=== PATIENT | female | born 1985 | race Caucasian/White ===

== ENCOUNTER 2017-02-04 20:04 | Outpatient (CLI) | payer OTHER ==
--- NOTE | 2017-02-05 11:38 | US ---
EXAM DATE: 02/04/17 PATIENT'S AGE: 31 Patient: GERARD RAIN Facility: [place], [place] Site . Site : 1985 Study: US Abdomen RENAL [id number] 9:59:32 PM Ordering Physician: Live Ham Final Report: INDICATION: Back pain. 28 weeks . TECHNIQUE: Ultrasound renal bilateral. Bassett-scale and color Doppler sonographic images were acquired of the kidneys and urinary bladder. COMPARISON: None available FINDINGS: Right kidney: 11.8 x 6.2 x 6.9 cm. Normal echotexture and cortex. Mild right hydronephrosis. No discrete mass or stone seen. Left kidney: 12.4 x 6.1 x 6.7 cm. Normal echotexture and cortex. Mild left hydronephrosis. No discrete mass or stone seen. Bladder: No discrete lesion seen. Few apparent small echogenic foci within the bladder lumen. Ureteral jets are documented. Other: A gravid uterus is partially imaged, not evaluated on this examination. IMPRESSION: Mild bilateral hydronephrosis could be related to a gravid uterus, which is not well evaluated on this examination. A few apparent small luminal echogenicities seen within the bladder. Correlate with urinalysis to exclude a UTI. Dictated by Jayant Scott MD @ 02/04/2017 10:29:25 PM Dictated by: Jayant Scott MD @ 02/04/2017 22:29:33 (Electronic Signature) Report Signed by Proxy and Original Signed Document filed in the Medical Record. RODRIGUEZ
== END 2017-02-04 23:41 | disposition home or self-care (01) ==
LOC: MW.OBCHECK 20:04 → MW.OB 20:27 → MW.OBCHECK 23:41
PROVIDERS: ATTEND Obstetrics & Gynecology
DX: O26.893 Other specified pregnancy related conditions, third trimester (principal); Z3A.28 28 weeks gestation of pregnancy; N13.30 Unspecified hydronephrosis
CPT/HCPCS: 59025; 76775; 76775-26; 81001

== ENCOUNTER 2017-02-21 17:03 | Outpatient (CLI) | payer OTHER ==
[2017-02-21] MEDS ORDERED: Acetaminophen/Butalbital/Caffeine 325-50-40 MG Tab PO ONE (17:57)
[2017-02-21 18:03] LABS: CHLORIDE,CL 109 mmol/L (98-110); SODIUM,NA 138 mmol/L (136-146)
== END 2017-02-21 19:40 | disposition home or self-care (01) ==
LOC: MW.OBCHECK 17:03 → MW.OB 17:06 → MW.OBCHECK 19:40
PROVIDERS: ATTEND Obstetrics & Gynecology
DX: O26.899 Other specified pregnancy related conditions, unspecified trimester (principal); R51 Headache
CPT/HCPCS: 36415; 59025; 80053; 81003; 84550; 85025; A9270

== ENCOUNTER 2017-04-23 03:27 | Inpatient (IN) | payer OTHER ==
[2017-04-23] MEDS ORDERED: Sodium Chloride 0.9% 10 ML Syringe FLUSH PRN (04:07)
[2017-04-23] MEDS ORDERED: Water For Irrigation,Sterile 1,000 ML Container IRR PRN (04:07)
[2017-04-23] MEDS ORDERED: Nalbuphine 10 MG/1 ML Vial IVPUSH PRN (04:07)
[2017-04-23] MEDS ORDERED: Sodium Chloride 0.9% 2.5 ML Syringe FLUSH PRN (04:07)
[2017-04-23] MEDS ORDERED: Lidocaine 1% 50 ML MDV INJECT PRN (04:07)
[2017-04-23] MEDS ORDERED: Methylergonovine 0.2 MG/1 ML Amp IM PRN (04:07)
[2017-04-23] MEDS ORDERED: Carboprost Tromethamine 250 MCG/1 ML Amp IM PRN (04:07)
[2017-04-23] MEDS ORDERED: Butorphanol 1 MG/ML SDV IVPUSH PRN (04:07)
[2017-04-23] MEDS ORDERED: Misoprostol 200 MCG Tab PO PRN (04:07)
[2017-04-23] MEDS ORDERED: Oxytocin/Lactated Ringers 30 UNIT/500 ML BAG IV SCH (04:15)
[2017-04-23] MEDS ORDERED: Lactated Ringers 1,000 ML IV SCH (04:15)
[2017-04-23] MEDS ORDERED: Acetaminophen 500 MG Tab PO PRN (05:48)
[2017-04-23] MEDS ORDERED: Benzocaine/Menthol 20%-0.5% Spray 78 GM Cannister TOP PRN (05:48)
[2017-04-23] MEDS ORDERED: Witch Hazel Medicated Pads 40/Jar TOP PRN (05:48)
[2017-04-23] MEDS ORDERED: oxyCODONE 5 MG Tab PO PRN (05:48)
[2017-04-23] MEDS ORDERED: Docusate Sodium 100 MG Cap PO PRN (05:48)
[2017-04-23] MEDS ORDERED: Bisacodyl 10 MG Supp RECTAL PRN (05:48)
[2017-04-23] MEDS ORDERED: Lanolin 100% Cream 7 GM Tube TOP PRN (05:48)
[2017-04-23] MEDS: Ibuprofen 800 MG Tab PO PRN ×3 (06:05→20:59)
--- NOTE | 2017-04-23 09:27 | OR ---
SURGEON: Rosmery Rodrigues DATE OF PROCEDURE: 04/23/2004 Delivery Summary. PREDELIVERY HISTORY: This is a 32-year-old G2, P1, who presented to Labor and Delivery at 39 weeks and 5 days with complaints of intrauterine contractions. The patient was examined and found to be 5 cm dilated. heart tracing was noted to be category 1 status and the patient was shona every 1-2 minutes. Shortly 20 minutes thereafter, the patient wanted to be examined again and was found to be 7 cm dilated, and the patient quickly progressed to complete dilation. The patient underwent amniotomy and started maternal expulsive efforts, with being complete. Of note, the patient's labor total length was less than 3 hours, making this precipitous labor. Of note, at the time of amniotomy, there was noted thick meconium. PREOPERATIVE DIAGNOSES: 1. Intrauterine at 39 weeks and 5 days. 2. GBS negative. 3. Active labor. POSTOPERATIVE DIAGNOSES: 1. Intrauterine at 39 weeks and 5 days. 2. Delivered. 3. Second-degree perineal laceration. 4. Separation of right labia majora. PROCEDURE PERFORMED: 1. Spontaneous-assisted vaginal delivery. 2. Repair of midline second-degree perineal laceration. 3. Reapproximation of right labia minora. ANESTHESIA: Local. ESTIMATED BLOOD LOSS: 125 mL. FINDINGS: Viable female in vertex presentation with score of 8 and 8 at 1 and 5 minutes respectively. Weight of 3420 g. Normal intact placenta with 3-vessel cord. Midline second-degree perineal laceration. Right labia minora reapproximation. COMPLICATIONS: None known. DISPOSITION: Was the patient tolerated the procedure well. DESCRIPTION OF PROCEDURE: This female under no anesthesia, delivered a viable female infant, with score of 8 and 8 at 1 and 5 minutes respectively and weight of 3220 g. Delivery was via spontaneous assisted vaginal delivery with vertex presentation. Upon delivery of infant vertex, neck was checked. There was no nuchal cord. With gentle downward traction, the anterior shoulder was delivered followed by the body. After delivery, the was vigorous at delivery and was bulb suctioned. The cord was doubly clamped and cut. The infant was taken over to baby warmer for deep suctioning by the nursing staff. Cord blood was collected and sent for analysis. After delivery of the infant, IV Pitocin was given as uterotonic to manage the third stage of labor and to prevent excessive maternal blood loss. With signs of placental separation, there was fundal massage completed along with traction on the umbilical cord and a normal intact placenta with 3-vessel cord was delivered. After delivery of infant and placenta, the vagina, perineum, and rectum were explored and the patient had a midline second-degree perineal laceration that was almost occult in appearance as the actual perineum was intact but more so in the vagina a second-degree laceration. The patient also had a separation of the right labia minora. After receiving local, 1% lidocaine plain was used to infiltrate the perineal tissues. The second-degree laceration was repaired in the usual 3-layer fashion with a 3- 0 Vicryl suture. Attention then was turned to the patient's right labia minora and the tissues in the right labia minora that were involved or infiltrated with 1% lidocaine plain, no epi. A 4-0 Vicryl suture was used to reapproximate the labia minora. Afterwards, hemostasis noted be excellent. All clots and debris were removed from the lower uterine segment and vagina. The patient was cleansed. Pads were changed. The bed was returned to functioning status. The patient and tolerated the procedure well. Sponge, lap, needle, and instrument counts were correct. LAURY / HINA /[id number] RODRIGUEZ
--- NOTE | 2017-04-24 06:37 | PCM.PNPP ---
- General Info Date of Service: 04/24/17 Functional Status: Reports: pain controlled, tolerating diet, ambulating, urinating - Review of Systems General: Reports: No Symptoms HEENT: Reports: no symptoms Pulmonary: Reports: no symptoms Cardiovascular: Reports: No Symptoms Gastrointestinal: Reports: No symptoms Genitourinary: Reports: no symptoms Musculoskeletal: Reports: no symptoms Skin: Reports: no symptoms Neurological: Reports: No Symptoms Psychiatric: Reports: no symptoms - Patient Data Vital Signs - most recent: Last Vital Signs Temp 36.9 C 04/23/17 19:51 Pulse 66 04/23/17 19:51 Resp 17 04/23/17 19:51 BP 113/61 04/23/17 19:51 Pulse Ox 99 04/23/17 19:51 Weight - most recent: 92.079 kg Lab Results - last 24 hrs: Laboratory Results - last 24 hr 04/24/17 Range/Units 04:30 Hgb 9.7 L (12.0-16.0) g/dL Hct 29.1 L (36.0-46.0) % Med Orders - Current: Current Medications Acetaminophen (Tylenol Extra Strength) 500 mg PO Q4H PRN PRN Reason: Pain Last Admin: 04/23/17 10:17 Dose: 500 mg Benzocaine/Menthol (Dermoplast Pain Relief 20%-0.5% [place]) 78 gm TOP ASDIRECTED PRN PRN Reason: Perineal Comfort Measure Last Admin: 04/23/17 06:04 Dose: 1 canister Bisacodyl (Dulcolax) 10 mg RECTAL .ONCE PRN PRN Reason: Constipation Butorphanol Tartrate (Stadol) 1 mg IVPUSH Q1H PRN PRN Reason: Pain Carboprost Tromethamine (Hemabate Ds) 250 mcg IM ASDIRECTED PRN PRN Reason: Post Hemorrhage Docusate Sodium (Colace) 100 mg PO BID PRN PRN Reason: Constipation Last Admin: 04/23/17 06:05 Dose: 100 mg Emollient Ointment (Lansinoh Hpa) 0 gm TOP ASDIRECTED PRN PRN Reason: Sore Nipples Lactated Ringer's (Ringers, Lactated) 1,000 mls @ 150 mls/hr IV ASDIRECTED [place] Last Admin: 04/23/17 04:02 Dose: 999 mls/hr Ibuprofen (Motrin) 800 mg PO Q6H PRN PRN Reason: Pain Last Admin: 04/23/17 20:59 Dose: 800 mg Lidocaine HCl (Xylocaine 1%) 50 ml INJECT .ONCE PRN PRN Reason: Laceration repair Last Admin: 04/23/17 04:32 Dose: 50 ml Methylergonovine Maleate (Methergine) 0.2 mg IM ASDIRECTED PRN PRN Reason: Post Hemorrhage Misoprostol (Cytotec) 200 mcg PO .ONCE PRN PRN Reason: Post Hemorrhage Oxycodone HCl (Oxycodone) 5 mg PO Q2H PRN PRN Reason: Pain Sodium Chloride (Saline Flush) 10 ml FLUSH ASDIRECTED PRN PRN Reason: Keep Vein Open Sodium Chloride (Saline Flush) 2.5 ml FLUSH ASDIRECTED PRN PRN Reason: Keep Vein Open Sterile Water (Sterile Water For Irrigation) 1,000 ml IRR ASDIRECTED PRN PRN Reason: delivery Last Admin: 04/23/17 04:15 Dose: 1,000 ml Witch Mony (Tucks) 1 pad TOP ASDIRECTED PRN PRN Reason: comfort care Last Admin: 04/23/17 06:05 Dose: 1 tub Discontinued Medications Oxytocin/Lactated Ringer's (Pitocin In Lr 30 Units/500 Ml) 30 unit in 500 mls @ 999 mls/hr IV ASDIRECTED [place] PRN Reason: 999 MUNITS/MIN Stop: 04/23/17 04:46 Last Admin: 04/23/17 04:21 Dose: 999 munits/min, 999 mls/hr Nalbuphine HCl (Nubain) 10 mg IVPUSH Q1H PRN PRN Reason: Pain (severe 7-10) Stop: 04/23/17 06:08 - Infant Interaction Disposition, : in Room with Family Interaction: Holding Feeding: Breastfed ; Nursed Well Support Person: - Recovery Exam Fundal Tone: Firm Fundal Level: At Umbilicus Fundal Placement: Midline Lochia Amount: Small Lochia Color: Rubra/Red Perineum Description: Other (see below) Other Perinuem Description: 2nd degree laceration with repair Episiotomy/Laceration: Approximated Bladder Status: Voiding - Exam General: alert, oriented HEENT: Pupils equal Lungs: Normal respiratory effort Abdomen: soft, no tenderness, no distension Extremities: no edema Skin: warm, dry, intact Wound/Incisions: healing well Neurological: no new focal deficit Psy/Mental Status: alert, normal affect, normal mood - Problem List & Annotations (1) Vaginal delivery SNOMED Code(s): 356008450 Code(s): O80 - ENCOUNTER FOR FULL-TERM UNCOMPLICATED DELIVERY Status: Acute Current Visit: Yes - Problem List Review Problem List Initiated/Reviewed/Updated: Yes - Assessment Assessment:: PPD#1 after , stable, would like to go home. Minimal lochia, well, minimal pain. She would like to start on antidepressant as she states she had untreated depression last and all of her sister have had depression. - Plan Plan:: Dismiss to home. Discharge instructions reviewed. Discussed risks and benefits of antidepressant while . Explained that the baby does have some exposure, primary symptom would be drowsiness or lethargy, if noted she should stop antidepressant until baby is evaluated. Discussed that it will take 2 weeks for antidepressant to be effective.
[2017-04-24] MEDS: Ibuprofen 800 MG Tab PO PRN (08:07)
[2017-04-24 15:18] VITALS: BP 118/65
== END 2017-04-24 14:30 | disposition home or self-care (01) | DRG 775 ==
LOC: MW.OB 03:27 → MW.OBCHECK 03:27 → MW.OB 04:07 → MW.OBCHECK 04:07 → OBSVTOIN 04:20 → MW.OB 13:50
PROVIDERS: ADMIT Obstetrics & Gynecology; ATTEND Obstetrics & Gynecology
PROC: 10E0XZZ Delivery of Products of Conception, External Approach (ICD-10-PCS; principal; 2017-04-23)
PROC: 0KQM0ZZ Repair Perineum Muscle, Open Approach (ICD-10-PCS; 2017-04-23)
DX: O70.1 Second degree perineal laceration during delivery (principal); Z37.0 Single live birth; O99.345 Other mental disorders complicating the puerperium; F32.9 Major depressive disorder, single episode, unspecified; Z3A.39 39 weeks gestation of pregnancy
CPT/HCPCS: 36415; 59025; 85014; 85018; 85027; 86850; 86900; 86901; A9270-GY; J7120

== ENCOUNTER 2018-06-24 05:15 | Inpatient (IN) | payer OTHER ==
[2018-06-24] MEDS ORDERED: Nalbuphine 10 MG/1 ML Vial IVPUSH PRN (05:40)
[2018-06-24] MEDS ORDERED: Terbutaline 1 MG/ML SDV SUBCUT PRN (05:40)
[2018-06-24] MEDS ORDERED: Butorphanol 1 MG/ML SDV IVPUSH PRN (05:40)
[2018-06-24] MEDS ORDERED: Methylergonovine 0.2 MG/1 ML Amp IM PRN ×2 (05:40→12:44)
[2018-06-24] MEDS ORDERED: Carboprost Tromethamine 250 MCG/1 ML Amp IM PRN (05:40)
[2018-06-24] MEDS ORDERED: Lidocaine 1% 50 ML MDV INJECT PRN (05:40)
[2018-06-24] MEDS ORDERED: Sodium Chloride 0.9% 10 ML Syringe FLUSH PRN (05:40)
[2018-06-24] MEDS ORDERED: Misoprostol 200 MCG Tab PO PRN (05:40)
[2018-06-24] MEDS ORDERED: Sodium Chloride 0.9% 2.5 ML Syringe FLUSH PRN (05:40)
[2018-06-24] MEDS ORDERED: Tranexamic Acid 1,000 MG in Sodium Chloride 0.9% 100 ML IV PRN (05:40)
[2018-06-24] MEDS ORDERED: Water For Irrigation,Sterile 1,000 ML Container IRR PRN (05:40)
[2018-06-24] MEDS ORDERED: Oxytocin/0.9 % Sodium Chloride 30 UNIT/500 ML BAG IV SCH ×2 (05:45)
[2018-06-24] MEDS: Lactated Ringers 1,000 ML IV SCH ×2 (06:27→07:42)
[2018-06-24] MEDS ORDERED: Ibuprofen 400 MG Tab PO PRN ×2 (12:39→12:44)
[2018-06-24] MEDS ORDERED: Ibuprofen 800 MG Tab PO PRN ×2 (12:39→12:48)
[2018-06-24] MEDS ORDERED: oxyCODONE 5 MG Tab PO PRN ×2 (12:39→12:44)
[2018-06-24] MEDS ORDERED: Benzocaine/Menthol 20%-0.5% Spray 78 GM Cannister TOP PRN ×2 (12:39→12:44)
[2018-06-24] MEDS ORDERED: Bisacodyl 10 MG Supp RECTAL PRN ×2 (12:39→12:44)
[2018-06-24] MEDS ORDERED: Lanolin 100% Cream 7 GM Tube TOP PRN ×2 (12:39→12:44)
[2018-06-24] MEDS ORDERED: Acetaminophen 500 MG Tab PO PRN ×3 (12:39→12:44)
[2018-06-24] MEDS ORDERED: Witch Hazel Medicated Pads 40/Jar TOP PRN ×2 (12:39→12:44)
[2018-06-24] MEDS ORDERED: Docusate Sodium 100 MG Cap PO PRN ×2 (12:39→12:44)
--- NOTE | 2018-06-24 12:41 | PCM.DEL ---
L & D Note - General Info Date of Service: 06/24/18 Mother's Due Date: 07/01/18 - Delivery Note Labor: Augmented by ARM, Induced by Oxytocin Delivery Outcome: Livebirth Delivery Method: Spontaneous Vaginal Delivery-Single Presentation: Left Occiput Anterior (STEPHANY) Nuchal Cord: Present Prep: Other Anesthesia Type: Local Anesthetic: Lidocaine (Xylocaine) 1% Plain Local Anesthetic Volume: Other (10 ml) Episiotomy Type: None Laceration: Vaginal, Other (periclitoral) Suture type: Vicryl Suture size: 3-0 Placenta: Intact, Spontaneous Cord: 3 Vessels Estimated Blood Loss: 300 Resuscitation Needed: No Score 1 min: 9 Score 5 min: 9 Second Stage Interventions: Reports: Encouragement Given, Pushing, Feet in Foot Rests (3860 grams, liveborn male.) - General Info Date of Service: 06/24/18 - Patient Data Weight - Most Recent: 98.43 kg Lab Results Last 24 Hours: Laboratory Results - last 24 hr 06/24/18 06/24/18 Range/Units 06:10 06:10 WBC 8.85 (4.0-11.0) K/uL RBC 4.20 L (4.30-5.90) M/uL Hgb 9.8 L (12.0-16.0) g/dL Hct 31.8 L (36.0-46.0) % MCV 75.7 L (80.0-98.0) fL MCH 23.3 L (27.0-32.0) pg MCHC 30.8 L (31.0-37.0) g/dL RDW Std Deviation 43.0 (28.0-62.0) fl RDW Coeff of Rosalva 16 H (11.0-15.0) % Plt Count 196 (150-400) K/uL MPV 10.00 (7.40-12.00) fL Nucleated RBC % 0.0 /100WBC Nucleated RBCs # 0 K/uL Blood Type A POSITIVE Antibody Screen NEGATIVE Med Orders - Current: Current Medications Butorphanol Tartrate (Stadol) 1 mg IVPUSH ASDIRECTED PRN PRN Reason: Pain Carboprost Tromethamine (Hemabate Ds) 250 mcg IM ASDIRECTED PRN PRN Reason: Post Hemorrhage Lactated Ringer's (Ringers, Lactated) 1,000 mls @ 150 mls/hr IV ASDIRECTED [place] Last Admin: 06/24/18 07:42 Dose: 150 mls/hr Oxytocin/Sodium Chloride (Oxytocin 30 Unit/500 Ml-Ns) 30 unit in 500 mls @ 2 mls/hr IV TITRATE [place]; Protocol Last Admin: 06/24/18 07:59 Dose: 2 munits/min, 2 mls/hr Oxytocin/Sodium Chloride (Oxytocin 30 Unit/500 Ml-Ns) 30 unit in 500 mls @ 999 mls/hr IV TITRATE [place] Tranexamic Acid 1,000 mg/ (Sodium Chloride) 110 mls @ 660 mls/hr IV ONETIME PRN PRN Reason: Bleeding Lidocaine HCl (Xylocaine 1%) 50 ml INJECT ONETIME PRN PRN Reason: Laceration repair Methylergonovine Maleate (Methergine) 0.2 mg IM ASDIRECTED PRN PRN Reason: Post Hemorrhage Misoprostol (Cytotec) 200 mcg PO ONETIME PRN PRN Reason: Post Hemorrhage Nalbuphine HCl (Nubain) 10 mg IVPUSH ASDIRECTED PRN PRN Reason: Pain (severe 7-10) Last Admin: 06/24/18 11:02 Dose: 10 mg Sodium Chloride (Saline Flush) 10 ml FLUSH ASDIRECTED PRN PRN Reason: Keep Vein Open Sodium Chloride (Saline Flush) 2.5 ml FLUSH ASDIRECTED PRN PRN Reason: Keep Vein Open Sterile Water (Sterile Water For Irrigation) 1,000 ml IRR ASDIRECTED PRN PRN Reason: delivery Terbutaline Sulfate (Brethine) 0.25 mg SUBCUT ASDIRECTED PRN PRN Reason: Tacysystole - Problem List & Annotations (1) Vaginal delivery SNOMED Code(s): 182105048 Code(s): O80 - ENCOUNTER FOR FULL-TERM UNCOMPLICATED DELIVERY Status: Acute Current Visit: No - Problem List Review Problem List Initiated/Reviewed/Updated: Yes - My Orders Last 24 Hours: My Active Orders 06/24/18 05:40 Patient Status [ADT] Routine Bedrest Bathroom Privileges [RC] ASDIRECTED Communication Order [RC] ASDIRECTED Communication Order [RC] ASDIRECTED Heart Tones [RC] CONTINUOUS Non Stress Test [RC] PER UNIT ROUTINE May Shower [RC] ASDIRECTED Notify Provider [RC] PRN Notify Provider [RC] PRN Oxygen Therapy [RC] ASDIRECTED Up ad Belle [RC] ASDIRECTED Vaginal Exam [RC] PRN Vaginal Exam [RC] PRN Vital Signs [RC] PER UNIT ROUTINE Vital Signs [RC] PER UNIT ROUTINE Butorphanol [Stadol] 1 mg IVPUSH ASDIRECTED PRN Carboprost Tromethamine [Hemabate DS] 250 mcg IM ASDIRECTED PRN Lidocaine 1% [Xylocaine 1%] 50 ml INJECT ONETIME PRN Methylergonovine [Methergine] 0.2 mg IM ASDIRECTED PRN Nalbuphine [Nubain] 10 mg IVPUSH ASDIRECTED PRN Sodium Chloride 0.9% [Saline Flush] 10 ml FLUSH ASDIRECTED PRN Sodium Chloride 0.9% [Saline Flush] 2.5 ml FLUSH ASDIRECTED PRN Terbutaline [Brethine] 0.25 mg SUBCUT ASDIRECTED PRN Tranexamic Acid [Cyklokapron] 1,000 mg Sodium Chloride 0.9% [Normal Saline] 100 ml IV ONETIME Water For Irrigation,Sterile [Sterile Water for Irrigation] 1,000 ml IRR ASDIRECTED PRN miSOPROStol [Cytotec] 200 mcg PO ONETIME PRN Scalp Electrode [WOMSER] Per Unit Routine Peripheral IV Insertion Adult [OM.PC] Routine Resuscitation Status Routine 06/24/18 05:45 Lactated Ringers [Ringers, Lactated] 1,000 ml IV ASDIRECTED Oxytocin/0.9 % Sodium Chloride [Oxytocin 30 Unit/500 ML-NS] 30 unit in 500 ml IV TITRATE Oxytocin/0.9 % Sodium Chloride [Oxytocin 30 Unit/500 ML-NS] 30 unit in 500 ml IV TITRATE Medication Administration Instruction [OM.PC] Q3H 06/24/18 Breakfast Clear Liquid Diet [DIET]
[2018-06-24] MEDS ORDERED: Acetaminophen 325 MG Tab PO PRN (12:48)
[2018-06-24] MEDS: Ibuprofen 800 MG Tab PO PRN ×2 (13:16→22:24)
[2018-06-24] MEDS: Acetaminophen 500 MG Tab PO PRN ×2 (13:17→19:40)
--- NOTE | 2018-06-25 08:01 | PCM.PNPP ---
- General Info Date of Service: 06/25/18 Admission Dx/Problem (Free Text): vaginal delivery Functional Status: Reports: Pain Controlled, Tolerating Diet, Ambulating, Urinating - Review of Systems General: Reports: No Symptoms HEENT: Reports: No Symptoms Pulmonary: Reports: No Symptoms Cardiovascular: Reports: No Symptoms Gastrointestinal: Reports: No Symptoms Genitourinary: Reports: No Symptoms Musculoskeletal: Reports: No Symptoms Skin: Reports: No Symptoms Neurological: Reports: No Symptoms Psychiatric: Reports: No Symptoms - General Info Date of Service: 06/25/18 - Patient Data Vital Signs - Most Recent: Last Vital Signs Temp 36.4 C 06/25/18 03:00 Pulse 76 06/25/18 03:00 Resp 18 06/25/18 03:00 BP 111/68 06/25/18 03:00 Pulse Ox 98 06/25/18 03:00 Weight - Most Recent: 98.43 kg Lab Results - Last 24 Hours: Laboratory Results - last 24 hr 06/24/18 06/25/18 Range/Units 12:10 04:50 Hgb 8.2 L (12.0-16.0) g/dL Hct 26.8 L (36.0-46.0) % Cord ABG pH 7.330 (7.18-7.38) Cord ABG Base Excess -4 (-10--2) Cord VBG pH 7.407 (7.25-7.45) Cord VBG Base Excess -3 (-10--2) Med Orders - Current: Current Medications Acetaminophen (Tylenol Extra Strength) 500 mg PO Q4H PRN PRN Reason: Pain Last Admin: 06/25/18 04:10 Dose: 500 mg Acetaminophen (Tylenol Extra Strength) 1,000 mg PO Q4H PRN PRN Reason: Pain Last Admin: 06/24/18 19:40 Dose: 1,000 mg Acetaminophen (Tylenol) 650 mg PO Q6H PRN PRN Reason: Headache Benzocaine/Menthol (Dermoplast Pain Relief 20%-0.5% [place]) 78 gm TOP ASDIRECTED PRN PRN Reason: Perineal Comfort Measure Bisacodyl (Dulcolax) 10 mg RECTAL ONETIME PRN PRN Reason: Constipation Docusate Sodium (Colace) 100 mg PO BID PRN PRN Reason: Constipation Last Admin: 06/24/18 19:41 Dose: 100 mg Emollient Ointment (Lansinoh Hpa) 0 gm TOP ASDIRECTED PRN PRN Reason: Sore Nipples Last Admin: 06/24/18 19:41 Dose: 7 gm Escitalopram Oxalate (Lexapro) 10 mg PO DAILY [facility] Ibuprofen (Motrin) 400 mg PO Q4H PRN PRN Reason: Pain Ibuprofen (Motrin) 800 mg PO Q6H PRN PRN Reason: Pain Last Admin: 06/24/18 22:24 Dose: 800 mg Ibuprofen (Motrin) 800 mg PO Q6H PRN PRN Reason: Pain Methylergonovine Maleate (Methergine) 0.2 mg IM ONETIME PRN PRN Reason: Excessive Vaginal Bleeding Oxycodone HCl (Oxycodone) 5 mg PO Q2H PRN PRN Reason: Pain Propranolol HCl (Inderal La) 60 mg PO DAILY [facility] Witch Mony (Tucks) 1 pad TOP ASDIRECTED PRN PRN Reason: comfort care Last Admin: 06/24/18 13:15 Dose: 1 applic Discontinued Medications Acetaminophen (Tylenol Extra Strength) 500 mg PO Q4H PRN PRN Reason: Pain Acetaminophen (Tylenol Extra Strength) 1,000 mg PO Q4H PRN PRN Reason: Pain Benzocaine/Menthol (Dermoplast Pain Relief 20%-0.5% [place]) 78 gm TOP ASDIRECTED PRN PRN Reason: Perineal Comfort Measure Bisacodyl (Dulcolax) 10 mg RECTAL ONETIME PRN PRN Reason: Constipation Butorphanol Tartrate (Stadol) 1 mg IVPUSH ASDIRECTED PRN PRN Reason: Pain Carboprost Tromethamine (Hemabate Ds) 250 mcg IM ASDIRECTED PRN PRN Reason: Post Hemorrhage Docusate Sodium (Colace) 100 mg PO BID PRN PRN Reason: Constipation Emollient Ointment (Lansinoh Hpa) 0 gm TOP ASDIRECTED PRN PRN Reason: Sore Nipples Lactated Ringer's (Ringers, Lactated) 1,000 mls @ 150 mls/hr IV ASDIRECTED [facility] Last Admin: 06/24/18 07:42 Dose: 150 mls/hr Oxytocin/Sodium Chloride (Oxytocin 30 Unit/500 Ml-Ns) 30 unit in 500 mls @ 2 mls/hr IV TITRATE [place]; Protocol Last Admin: 06/24/18 07:59 Dose: 2 munits/min, 2 mls/hr Oxytocin/Sodium Chloride (Oxytocin 30 Unit/500 Ml-Ns) 30 unit in 500 mls @ 999 mls/hr IV TITRATE [place] Tranexamic Acid 1,000 mg/ (Sodium Chloride) 110 mls @ 660 mls/hr IV ONETIME PRN PRN Reason: Bleeding Ibuprofen (Motrin) 400 mg PO Q4H PRN PRN Reason: Pain Ibuprofen (Motrin) 800 mg PO Q6H PRN PRN Reason: Pain Lidocaine HCl (Xylocaine 1%) 50 ml INJECT ONETIME PRN PRN Reason: Laceration repair Last Admin: 06/24/18 13:33 Dose: 50 ml Methylergonovine Maleate (Methergine) 0.2 mg IM ASDIRECTED PRN PRN Reason: Post Hemorrhage Misoprostol (Cytotec) 200 mcg PO ONETIME PRN PRN Reason: Post Hemorrhage Nalbuphine HCl (Nubain) 10 mg IVPUSH ASDIRECTED PRN PRN Reason: Pain (severe 7-10) Last Admin: 06/24/18 11:02 Dose: 10 mg Oxycodone HCl (Oxycodone) 5 mg PO Q2H PRN PRN Reason: Pain Sodium Chloride (Saline Flush) 10 ml FLUSH ASDIRECTED PRN PRN Reason: Keep Vein Open Sodium Chloride (Saline Flush) 2.5 ml FLUSH ASDIRECTED PRN PRN Reason: Keep Vein Open Sterile Water (Sterile Water For Irrigation) 1,000 ml IRR ASDIRECTED PRN PRN Reason: delivery Last Admin: 06/24/18 13:34 Dose: 1,000 ml Terbutaline Sulfate (Brethine) 0.25 mg SUBCUT ASDIRECTED PRN PRN Reason: Tacysystole Witch Mony (Tucks) 1 pad TOP ASDIRECTED PRN PRN Reason: comfort care - Interaction Infant Disposition, : in Room with Family Interaction: Holding Infant Feeding: Breastfed Infant; Nursed Well Support Person: - Recovery Exam Fundal Tone: Firm Fundal Level: 1 Fingerbreadths Below Umbilicus Fundal Placement: Midline Lochia Amount: Scant, Small Lochia Color: Rubra/Red Perineum Description: Other (see below) Other Perinuem Description: 2nd degree tear Episiotomy/Laceration: Approximated Bladder Status: Voiding - Exam General: Alert, Oriented HEENT: Pupils Equal Neck: Supple Lungs: Normal Respiratory Effort GI/Abdominal Exam: Soft, Non-Tender, No Distention, No Mass Extremities: Normal Inspection, Non-Tender, No Pedal Edema Skin: Warm, Dry, Intact Neurological: No New Focal Deficit Psy/Mental Status: Alert, Normal Affect, Normal Mood - Problem List & Annotations (1) Vaginal delivery SNOMED Code(s): 326651681 Code(s): O80 - ENCOUNTER FOR FULL-TERM UNCOMPLICATED DELIVERY Status: Acute Current Visit: No - Problem List Review Problem List Initiated/Reviewed/Updated: Yes - My Orders Last 24 Hours: My Active Orders 06/24/18 12:39 May Shower [RC] ASDIRECTED Up ad Belle [RC] ASDIRECTED Vital Signs [RC] PER UNIT ROUTINE 06/24/18 12:44 Acetaminophen [Tylenol Extra Strength] 1,000 mg PO Q4H PRN Acetaminophen [Tylenol Extra Strength] 500 mg PO Q4H PRN Benzocaine/Menthol [Dermoplast Pain Relief 20%-0.5% [place]] 78 gm TOP ASDIRECTED PRN Bisacodyl [Dulcolax] 10 mg RECTAL ONETIME PRN Docusate Sodium [Colace] 100 mg PO BID PRN Ibuprofen [Motrin] 400 mg PO Q4H PRN Ibuprofen [Motrin] 800 mg PO Q6H PRN Lanolin [Lansinoh HPA] See Dose Instructions TOP ASDIRECTED PRN Methylergonovine [Methergine] 0.2 mg IM ONETIME PRN Witch Mony [Tucks] 1 pad TOP ASDIRECTED PRN oxyCODONE 5 mg PO Q2H PRN Resuscitation Status Routine 06/24/18 12:45 Patient Status [ADT] Routine Vital Signs [RC] PER UNIT ROUTINE Assess Lochia [WOMSER] Per Unit Routine Assess Uterine Involution [WOMSER] Per Unit Routine Perineal Care [OM.PC] Per Unit Routine Peripheral IV Discontinue [OM.PC] Routine 06/24/18 12:48 Acetaminophen [Tylenol] 650 mg PO Q6H PRN Ibuprofen [Motrin] 800 mg PO Q6H PRN 06/24/18 Dinner Regular Diet [DIET] 06/25/18 09:00 Escitalopram [Lexapro] 10 mg PO DAILY Propranolol [Inderal LA] 60 mg PO DAILY - Assessment Assessment:: PPD#1 after , stable, chronic anemia, continue iron for 1 month, continue prenatals while . denies dizziness shortness of breath or other symptoms, pain well contolled. - Plan Plan:: Dismiss to home to day, discharge instructions reviewed.
[2018-06-25] MEDS ORDERED: Propranolol 60 MG Cap.ER PO SCH (09:00)
[2018-06-25] MEDS ORDERED: Escitalopram 10 MG Tab PO SCH (09:00)
--- NOTE | 2018-06-25 09:28 | OR ---
SURGEON: Alma Rosa Rodríguez M.D. DATE OF PROCEDURE: 06/24/2018 PREOPERATIVE DIAGNOSES: 1. A 39-week intrauterine . 2. Parvo exposure in . POSTOPERATIVE DIAGNOSES: 1. A 39-week intrauterine . 2. Parvo exposure in . PROCEDURE: 1. Pitocin induction of labor. 2. Term spontaneous vaginal delivery. 3. Repair of periclitoral and vaginal laceration. ANESTHESIA: Local. ESTIMATED BLOOD LOSS: Less than 300 mL. FINDINGS: Liveborn male, scores 9 and 9, 3860 g. COMPLICATION: None known. DISPOSITION: Stable in LDRP. BRIEF HISTORY: This is a 33-year-old female, presents for induction of labor. She has known parvo exposure during . She was followed with serial middle cerebral artery Dopplers, which were normal. She has also been followed with biophysical profiles for polyhydramnios which has subsequently resolved. She presents for induction of labor. Initially, she was 3 cm, 80%, -2 station. Pitocin was initiated. She had category 1 heart tones. Artificial rupture of membranes was performed. She had thick meconium noted. She progressed to complete. She did receive a single dose of Stadol for pain control. DESCRIPTION OF PROCEDURE: With the patient in dorsal lithotomy position, the patient pushed over a 15- minute time period to a 5+ station, at which time the head was delivered spontaneously and atraumatically over the perineum with support. The was deep suctioned on the perineum with subsequent delivery of the 's shoulders and body without any difficulty. There was a nuchal cord that was reduced following the delivery. The infant was handed to the mother in the presence of the nurse attending delivery. The infant is a liveborn male, scores 9 and 9, weight 3860 g. Cord blood was collected for cord ABGs as well as routine cord blood sampling. Pitocin was initiated after delivery of the , whose cord had been doubly clamped and cut after it ceased to pulsate to assist with delivery of the placenta which was delivered spontaneously. Tone intact with 3 vessels. Upon inspection of the pelvis and perineum, there were no periurethral, cervical, perineal or rectal lacerations. There was a small 3 cm vaginal laceration at the 6 o'clock position, it was repaired with a running locked suture of 3-0 Vicryl, after placement of approximately 10 mL of 1% lidocaine and a periclitoral laceration that was repaired, also under lidocaine using 3-0 Vicryl for hemostasis. Final sponge, needle, and instrument count were correct. There were no known complications. is in LDRP and mother are in LDRP in good condition. DEION SANTAMARIA /[id number]
[2018-06-25 12:37] VITALS: BP 132/76
== END 2018-06-25 13:20 | disposition home or self-care (01) | DRG 775 ==
LOC: MW.OBCHECK 05:15 → MW.OB 05:20 → MW.OBCHECK 05:40 → OBSVTOIN 12:08
PROVIDERS: ADMIT Obstetrics & Gynecology; ATTEND Obstetrics & Gynecology
PROC: 3E033VJ Introduction of Other Hormone into Peripheral Vein, Percutaneous Approach (ICD-10-PCS; principal; 2018-06-24)
PROC: 10907ZC Drainage of Amniotic Fluid, Therapeutic from Products of Conception, Via Natural or Artificial Opening (ICD-10-PCS; 2018-06-24)
PROC: 0HQ9XZZ Repair Perineum Skin, External Approach (ICD-10-PCS; 2018-06-24)
DX: O70.0 First degree perineal laceration during delivery (principal); Z37.0 Single live birth; O77.0 Labor and delivery complicated by meconium in amniotic fluid; O69.1XX0 Labor and delivery complicated by cord around neck, with compression, not applicable or unspecified; Z3A.39 39 weeks gestation of pregnancy; Z20.828 Contact with and (suspected) exposure to other viral communicable diseases
CPT/HCPCS: 36415; 59025; 59409; 82803; 85014; 85018; 85027; 86850; 86900; 86901; A9270-GY; J2300; J2590; J7120

== ENCOUNTER 2020-02-27 10:12 | Emergency (ER) | payer OTHER ==
[2020-02-27 10:31] VITALS: BP 111/65; PULSE 98
--- NOTE | 2020-02-27 10:40 | EDM.PDOC ---
ED HPI GENERAL MEDICAL PROBLEM - General Chief Complaint: Respiratory Problem Stated Complaint: POSSIBLE PNEUMONIA Time Seen by Provider: 02/27/20 10:13 Source of Information: Reports: Patient History Limitations: Reports: No Limitations - History of Present Illness INITIAL COMMENTS - FREE TEXT/NARRATIVE: HISTORY AND PHYSICAL: History of present illness: Patient is a 34-year-old female who presents to the emergency room with complaints of fevers, cough, feeling run down and shortness of breath. She reports that her was admitted to our facility approximately a week and a half ago for pneumonia. He was tested for COVID-19, which was negative. Shortly after she started to develop these symptoms. She was seen at [facility] and tested for COVID-19, but has not received these results yet. She has been alternating Tylenol and ibuprofen to control her fevers which have been T-max of 102.4. She also has been using her daughter's inhaler which has seemed to help somewhat. She has felt her fever has been under control over the last 24 hours but still feels like her chest is tight when trying to take in a deep breath. She does have a younger child at home who has also had some respiratory symptoms, mild. Patient denies any headache, change in vision, syncope or near syncope. Denies any chest pain, back pain, abdominal pain, nausea, vomiting, diarrhea, constipation or dysuria. Denies any chance of . Patient has been eating and drinking appropriately. Does not take any hormone replacement therapy, no recent long travels. Review of systems: As per history of present illness and below otherwise all systems reviewed and negative. Past medical history: As per history of present illness and as reviewed below otherwise noncontributory. Surgical history: As per history of present illness and as reviewed below otherwise noncontributory. Social history: See social history for further information Family history: As per history of present illness and as reviewed below otherwise noncontributory. Physical exam: General: Well-developed and well-nourished 34-year-old female. Alert and oriented. Nontoxic-appearing and in no acute distress. HEENT: Atraumatic, normocephalic, pupils equal and reactive bilaterally, negative for conjunctival pallor or scleral icterus, mucous membranes moist, TMs normal bilaterally, throat clear, neck supple, nontender, trachea midline. No drooling or trismus noted. No meningeal signs. No hot potato voice noted. Lungs: Slightly diminished throughout otherwise breath sounds equal bilaterally , chest nontender. No rhonchi or rales. Dry nonproductive cough noted. Heart: S1S2, regular rate and rhythm without overt murmur Abdomen: Soft, nondistended, nontender. Negative for masses or costovertebral tenderness. Skin: Intact, warm, dry. No lesions or rashes noted. Extremities: Atraumatic, moves all extremities per self without difficulty or deficits, negative for cords or calf pain. Neurovascular unremarkable. Neuro: Awake, alert, oriented. Cranial nerves II through XII unremarkable. Cerebellum unremarkable. Motor and sensory unremarkable throughout. Exam nonfocal. Notes: Gathering patient's history and my physical exam, low risk of PE or cardiac involvement. We will do chest x-ray and COVID screening. Equivocal atelectasis within the left retrocardiac region. Due to length of symptoms with treat with abx and medrol. Her Lexapro interacts with Zpak; will use Doxycycline (denies any chance of ). We discussed medication and supportive care measures were reviewed and discussed. Voices understanding and is agreeable to plan of care. Denies any further questions or concerns at this time. Diagnostics: COVID-19, CXR Therapeutics: None Prescription: Zpak, Medrol Dosepak, Pro-Air Impression: Bronchitis Plan: 1. Today's testing and physical exam are within normal limits. We did test you for COVID-19, this was negative. Continue to monitor your symptoms. For further questions related to the COVID-19, the public can call the [facility] hotline at from 7am - 7pm Saturday - Saturday. 2. Good handwashing (at least 20 seconds) and frequently. Contact precautions such as coughing into your elbow, etc... 3. You can alternate Tylenol and ibuprofen as needed for pain and fever management. 3. Please follow-up with your primary care provider as we discussed. Return to the ED as needed and as discussed. Definitive disposition and diagnosis as appropriate pending reevaluation and review of above. Duration: Week(s): Location: Reports: Chest - Related Data Allergies Allergy/AdvReac Type Severity Reaction Status Date / Time No Known Allergies Allergy Verified 02/27/20 10:28 Home Meds: Home Meds Escitalopram [Lexapro] 10 mg PO DAILY #30 tablet 04/24/17 [Rx] Albuterol Sulfate [Proair Hfa] 2 puff IH Q4H PRN #1 hfa.aer.ad 02/27/20 [Rx] Doxycycline [Vibramycin] 100 mg PO BID 5 Days #10 tab 02/27/20 [Rx] methylPREDNISolone [Medrol] 1 dose PO DAILY 6 Days #1 dospk 02/27/20 [Rx] Past Medical History - Past Health History Medical/Surgical History: Denies Medical/Surgical History HEENT History: Reports: Impaired Vision Other HEENT History: contacts 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 ED EXAM, GENERAL - Physical Exam Exam: See Below (See dictation) Course - Vital Signs Last Recorded V/S: Last Vital Signs Temp 97.6 F 02/27/20 10:29 Pulse 98 02/27/20 10:29 Resp 17 02/27/20 10:29 BP 111/65 02/27/20 10:29 Pulse Ox 97 02/27/20 10:29 - Orders/Labs/Meds Labs: Laboratory Tests 02/27/20 Range/Units 11:40 SARS-CoV-2 RNA (RT-PCR) NEGATIVE (NEGATIVE) Departure - Departure Time of Disposition: 12:47 Disposition: Home, Self-Care 01 Clinical Impression: Bronchitis - Discharge Information Prescriptions: Albuterol Sulfate [Proair Hfa] 2 puff IH Q4H PRN #1 hfa.aer.ad PRN Reason: Dyspnea Doxycycline [Vibramycin] 100 mg PO BID 5 Days #10 tab methylPREDNISolone [Medrol] 1 dose PO DAILY 6 Days #1 dospk Instructions: Upper Respiratory Infection, Adult, [id number] Referrals: Khari Blackmon MD [Primary Care Provider] - Forms: ED Department Discharge Additional Instructions: The following information is given to patients seen in the emergency department who are being discharged to home. This information is to outline your options for follow-up care. We provide all patients seen in our emergency department with a follow-up referral. The need for follow-up, as well as the timing and circumstances, are variable depending upon the specifics of your emergency department visit. If you don't have a primary care physician on staff, we will provide you with a referral. We always advise you to contact your personal physician following an emergency department visit to inform them of the circumstance of the visit and for follow-up with them and/or the need for any referrals to a consulting specialist. The emergency department will also refer you to a specialist when appropriate. This referral assures that you have the opportunity for follow-up care with a specialist. All of these measure are taken in an effort to provide you with optimal care, which includes your follow-up. Under all circumstances we always encourage you to contact your private physician who remains a resource for coordinating your care. When calling for follow-up care, please make the office aware that this follow-up is from your recent emergency room visit. If for any reason you are refused follow-up, please contact the [facility] Emergency Department at and asked to speak to the emergency department charge nurse. [facility] [address] [place] [id number] [place] [address] 1. Today's testing and physical exam are within normal limits. We did test you for COVID-19, this was negative. Continue to monitor your symptoms. For further questions related to the COVID-19, the public can call the [facility] hotline at from 7am - 7pm Saturday - Saturday. 2. Good handwashing (at least 20 seconds) and frequently. Contact precautions such as coughing into your elbow, etc... 3. You can alternate Tylenol and ibuprofen as needed for pain and fever management. 3. Please follow-up with your primary care provider as we discussed. Return to the ED as needed and as discussed. Sepsis Event Note - Evaluation Sepsis Screening Result: No Definite Risk - Focused Exam Vital Signs: Vital Signs Temp Pulse Resp BP Pulse Ox 02/27/20 10:29 97.6 F 98 17 111/65 97 Date Exam was Performed: 02/27/20 Time Exam was Performed: 12:47
--- NOTE | 2020-02-27 11:18 | CR ---
Chest: Portable view of the chest was obtained. Comparison: No previous chest x-rays available. Heart size and mediastinum are normal. Questionable minimal density overlying the left side of the heart is seen possibly due to atelectasis. Lungs otherwise are clear. Bony structures appear within normal limits for the patient's age. Impression: 1. Equivocal atelectasis within the left retrocardiac region. 2. Nothing acute is otherwise seen on portable chest x-ray. Note: If patient's symptoms are sufficient for further evaluation, PA and lateral views could be obtained. Diagnostic code #2 This report was dictated in MDT
== END 2020-02-27 12:55 | disposition home or self-care (01) ==
LOC: MW.ED 10:12
DX: J40 Bronchitis, not specified as acute or chronic (principal); F32.9 Major depressive disorder, single episode, unspecified; Z79.899 Other long term (current) drug therapy
CPT/HCPCS: 71045; 71045-26; 99283; 99283-25; U0002

== ENCOUNTER 2020-03-11 11:43 | Emergency (ER) | payer OTHER ==
--- NOTE | 2020-03-11 12:13 | EDM.PDOC ---
ED HPI GENERAL MEDICAL PROBLEM - General Stated Complaint: HEADACHE/FACIAL DROOPING Time Seen by Provider: 03/11/20 11:48 - History of Present Illness INITIAL COMMENTS - FREE TEXT/NARRATIVE: History of present illness: [Patient presents with concerns over migraine headache and some facial droop. 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 No fevers no trauma. Patient states she gets complex migraines and she experiences aura as well as left-sided weakness and decreased sensation over the left side this is her typical migraine. ] Review of systems: As per history of present illness and below otherwise all systems reviewed and negative. Past medical history: As per history of present illness and as reviewed below otherwise noncontributory. Surgical history: As per history of present illness and as reviewed below otherwise noncontributory. Social history: No reported history of drug or alcohol abuse. Family history: As per history of present illness and as reviewed below otherwise noncontributory. Physical exam: HEENT: Atraumatic, normocephalic, pupils reactive, negative for conjunctival pallor or scleral icterus, mucous membranes moist, throat clear, neck supple, nontender, trachea midline. Lungs: Clear to auscultation, breath sounds equal bilaterally, chest nontender. Heart: S1S2, regular, negative for clicks, rubs, or JVD. Abdomen: Soft, nondistended, nontender. Negative for masses or hepatosplenomegaly. Negative for costovertebral tenderness. Pelvis: Stable nontender. Genitourinary: Deferred. Rectal: Deferred. Extremities: Atraumatic, negative for cords or calf pain. Neurovascular unremarkable. Neuro: Awake, alert, oriented. Cranial nerves II through XII unremarkable. Cerebellum unremarkable. Motor and sensory unremarkable throughout. Exam nonfocal. No pronator drift great toe strength equal bilaterally gait is normal she has normal reactive pupils all cranial nerves are intact there is absolutely no facial droop. Diagnostics: [] Therapeutics: [] Impression: Complex migraine [] Plan: I discussed with the patient the completely normal neurological exam. With her history and her description of prior migraine this is a complex migraine she is experiencing. I offered medications for her pain she declined she states that she only came to get a head CT I offered to do a complete CVA work-up although I do not see any signs or symptoms of stroke today in the emergency department she has declined at this time. She is encouraged to follow -up with neurology for her complex migraines referral is given [] Definitive disposition and diagnosis as appropriate pending reevaluation and review of above. 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: Neurological History: Reports: Migraines Psychiatric History: Reports: Depression - Infectious Disease History Infectious Disease History: Reports: Chicken Pox - Past Surgical History HEENT Surgical History: Reports: None Neurological Surgical History: Reports: None Social & Family History - Family History Family Medical History: Noncontributory - Caffeine Use Caffeine Use: Reports: Tea Other Caffeine Use: 2 cups/day ED ROS GENERAL - Review of Systems Review Of Systems: See Below ED EXAM, GENERAL - Physical Exam Exam: See Below Course - Vital Signs Last Recorded V/S: Last Vital Signs Temp 36.6 C 03/11/20 11:54 Pulse 77 03/11/20 11:54 Resp 16 03/11/20 11:54 BP 102/72 03/11/20 11:54 Pulse Ox 99 03/11/20 11:54 Departure - Departure Time of Disposition: 12:07 Disposition: Home, Self-Care 01 Condition: Good Clinical Impression: Migraine aura without headache - Discharge Information *PRESCRIPTION DRUG MONITORING PROGRAM REVIEWED*: Not Applicable *COPY OF PRESCRIPTION DRUG MONITORING REPORT IN PATIENT LOGAN: Not Applicable Referrals: Khari Blackmon MD [Primary Care Provider] - Additional Instructions: [facility] - Urology [address] [place] [id number] The following information is given to patients seen in the emergency department who are being discharged to home. This information is to outline your options for follow-up care. We provide all patients seen in our emergency department with a follow-up referral. The need for follow-up, as well as the timing and circumstances, are variable depending upon the specifics of your emergency department visit. If you don't have a primary care physician on staff, we will provide you with a referral. We always advise you to contact your personal physician following an emergency department visit to inform them of the circumstance of the visit and for follow-up with them and/or the need for any referrals to a consulting specialist. The emergency department will also refer you to a specialist when appropriate. This referral assures that you have the opportunity for follow-up care with a specialist. All of these measure are taken in an effort to provide you with optimal care, which includes your follow-up. Under all circumstances we always encourage you to contact your private physician who remains a resource for coordinating your care. When calling for follow-up care, please make the office aware that this follow-up is from your recent emergency room visit. If for any reason you are refused follow-up, please contact the [facility] Emergency Department at and asked to speak to the emergency department charge nurse. Sepsis Event Note - Evaluation Sepsis Screening Result: No Definite Risk - Focused Exam Vital Signs: Vital Signs Temp Pulse Resp BP Pulse Ox 03/11/20 11:54 36.6 C 77 16 102/72 99 Date Exam was Performed: 03/11/20 Time Exam was Performed: 12:06
[2020-03-11 12:38] VITALS: BP 124/83; PULSE 68
== END 2020-03-11 12:37 | disposition home or self-care (01) ==
LOC: MW.ED 11:43
DX: G43.109 Migraine with aura, not intractable, without status migrainosus (principal); F32.9 Major depressive disorder, single episode, unspecified; Z79.899 Other long term (current) drug therapy
CPT/HCPCS: 99282; 99283

== ENCOUNTER 2021-07-06 05:15 | Observation (INO) | payer BC ==
[2021-07-06] MEDS ORDERED: Nalbuphine 10 MG/1 ML Vial IVPUSH PRN (06:23)
[2021-07-06] MEDS ORDERED: Sodium Chloride 0.9% 10 ML SDV IV PRN (06:23)
[2021-07-06] MEDS ORDERED: Butorphanol 1 MG/ML SDV IVPUSH PRN (06:23)
[2021-07-06] MEDS ORDERED: Sodium Chloride 0.9% 2.5 ML Syringe FLUSH PRN (06:23)
[2021-07-06] MEDS ORDERED: Carboprost Tromethamine 250 MCG/1 ML Amp IM PRN (06:23)
[2021-07-06] MEDS ORDERED: Tranexamic Acid 1,000 MG in Sodium Chloride 0.9% 100 ML IV PRN ×2 (06:23→11:52)
[2021-07-06] MEDS ORDERED: Lidocaine 1% 50 ML MDV INJECT PRN (06:23)
[2021-07-06] MEDS ORDERED: Misoprostol 200 MCG Tab PO PRN (06:23)
[2021-07-06] MEDS ORDERED: Terbutaline 1 MG/ML SDV SUBCUT PRN (06:23)
[2021-07-06] MEDS ORDERED: Methylergonovine 0.2 MG/1 ML Amp IM PRN ×2 (06:23→11:52)
[2021-07-06] MEDS ORDERED: Sodium Chloride 0.9% 10 ML Syringe FLUSH PRN (06:23)
[2021-07-06] MEDS ORDERED: Water For Irrigation,Sterile 1,000 ML Container IRR PRN (06:23)
[2021-07-06] MEDS ORDERED: Oxytocin/0.9 % Sodium Chloride 30 UNIT/500 ML BAG IV SCH ×2 (06:30)
[2021-07-06] MEDS ORDERED: Lactated Ringers 1,000 ML IV SCH (06:30)
[2021-07-06] MEDS ORDERED: Ropivacaine HCl/PF 200 ML ONE (09:58)
--- NOTE | 2021-07-06 10:23 | PCM.PREANE ---
Preanesthetic Assessment - Anesthesia/Transfusion/Family Hx Anesthesia History: Prior Anesthesia Without Reaction Family History of Anesthesia Reaction: No Transfusion History: No Prior Transfusion(s) - Review of Systems General: No Symptoms Pulmonary: No Symptoms Cardiovascular: No Symptoms Gastrointestinal: No Symptoms Neurological: No Symptoms Other: Reports: None - Physical Assessment Height: 5 ft 9 in Weight: 222 lb ASA Class: 2 Mental Status: Alert & Oriented x3 Airway Class: Mallampati = 3 Dentition: Reports: Normal Dentition ROM/Head Extension: Full Lungs: Clear to Auscultation, Normal Respiratory Effort Cardiovascular: Regular Rate, Regular Rhythm - Lab Values: Laboratory Last Values WBC 12.76 K/uL (4.0-11.0) H 07/06/21 05:50 RBC 3.86 M/uL (4.30-5.90) L 07/06/21 05:50 Hgb 9.9 g/dL (12.0-16.0) L 07/06/21 05:50 Hct 30.8 % (36.0-46.0) L 07/06/21 05:50 MCV 79.8 fL (80.0-98.0) L 07/06/21 05:50 MCH 25.6 pg (27.0-32.0) L 07/06/21 05:50 MCHC 32.1 g/dL (31.0-37.0) 07/06/21 05:50 RDW Std Deviation 42.2 fl (28.0-62.0) 07/06/21 05:50 RDW Coeff of Rosalva 15 % (11.0-15.0) 07/06/21 05:50 Plt Count 224 K/uL (150-400) 07/06/21 05:50 MPV 10.70 fL (7.40-12.00) 07/06/21 05:50 Nucleated RBC % 0.0 /100WBC 07/06/21 05:50 Nucleated RBCs # 0 K/uL 07/06/21 05:50 - Allergies Allergies/Adverse Reactions: Allergies Allergy/AdvReac Type Severity Reaction Status Date / Time No Known Allergies Allergy Verified 07/06/21 08:29 - Blood Blood Available: Yes Product(s) Available: PRBC, FFP, Platelets - Anesthesia Plan Pre-Op Medication Ordered: None - Acknowledgements Anesthesia Type Planned: Epidural Pt an Appropriate Candidate for the Planned Anesthesia: No Alternatives and Risks of Anesthesia Discussed w Pt/Guardian: No Pt/Guardian Understands and Agrees with Anesthesia Plan: No PreAnesthesia Questionnaire - Past Health History Medical/Surgical History: Denies Medical/Surgical History HEENT History: Reports: Impaired Vision Other HEENT History: contacts [employer] History: Reports: Neurological History: Reports: Migraines Psychiatric History: Reports: Depression Other Psychiatric History: Anxiety, Hx PP Depression with all 3 previous pregnancies, was placed on medication for depression, pt aware of s/s pp depression. - Infectious Disease History Infectious Disease History: Reports: Chicken Pox - Past Surgical History HEENT Surgical History: Reports: None Neurological Surgical History: Reports: None Other Musculoskeletal Surgeries/Procedures:: Right knee surgery - HOME MEDS Home Medications: Home Meds Escitalopram [Lexapro] 10 mg PO DAILY #30 tablet 04/24/17 [Rx] Albuterol Sulfate [Proair Hfa] 2 puff IH Q4H PRN #1 hfa.aer.[email or web address] 02/27/20 [Rx] SUMAtriptan succinate [Imitrex] 100 mg PO QID PRN 03/11/20 [History] - CURRENT (IN HOUSE) MEDS Current Meds: Current Medications Butorphanol Tartrate (Butorphanol 1 Mg/Ml Sdv) 1 mg IVPUSH Q1H PRN PRN Reason: Pain (severe 7-10) Carboprost Tromethamine (Carboprost Tromethamine 250 Mcg/1 Ml Amp) 250 mcg IM ASDIRECTED PRN PRN Reason: Post Hemorrhage Oxytocin/Sodium Chloride (Oxytocin 30 Unit/500 Ml-Ns) 30 unit in 500 mls @ 500 mls/hr IV TITRATE [place] Tranexamic Acid 1,000 mg/ (Sodium Chloride) 110 mls @ 660 mls/hr IV ONETIME PRN PRN Reason: Bleeding Oxytocin/Sodium Chloride (Oxytocin 30 Unit/500 Ml-Ns) 30 unit in 500 mls @ 2 mls/hr IV TITRATE [place]; Protocol Last Admin: 07/06/21 07:47 Dose: 2 munits/min, 2 mls/hr Documented by: Lactated Ringer's (Ringers, Lactated) 1,000 mls @ 150 mls/hr IV ASDIRECTED [place] Lidocaine HCl (Lidocaine 1% 50 Ml Mdv) 50 ml INJECT ONETIME PRN PRN Reason: Laceration repair Methylergonovine Maleate (Methylergonovine 0.2 Mg/1 Ml Amp) 0.2 mg IM ASDIRECTED PRN PRN Reason: Post Hemorrhage Misoprostol (Misoprostol 200 Mcg Tab) 200 mcg PO ONETIME PRN PRN Reason: Post Hemorrhage Nalbuphine HCl (Nalbuphine 10 Mg/1 Ml Vial) 10 mg IVPUSH Q1H PRN PRN Reason: Pain (severe 7-10) Sodium Chloride (Sodium Chloride 0.9% 10 Ml Syringe) 10 ml FLUSH ASDIRECTED PRN PRN Reason: Keep Vein Open Sodium Chloride (Sodium Chloride 0.9% 2.5 Ml Syringe) 2.5 ml FLUSH ASDIRECTED PRN PRN Reason: Keep Vein Open Sodium Chloride (Sodium Chloride 0.9% 10 Ml Sdv) 10 ml IV ASDIRECTED PRN PRN Reason: IV Use Sterile Water (Water For Irrigation,Sterile 1,000 Ml Container) 1,000 ml IRR ASDIRECTED PRN PRN Reason: delivery Terbutaline Sulfate (Terbutaline 1 Mg/Ml Sdv) 0.25 mg SUBCUT ASDIRECTED PRN PRN Reason: Tacysystole Discontinued Medications Ropivacaine (Naropin 0.2%) Confirm Administered Dose 200 mls @ as directed .[facility] Stop: 07/06/21 09:59 - Pre-Procedure Checklist Attending Provider Aware: Yes Chart Reviewed: Yes Consent Signed: Yes Labs Reviewed: Yes VS/FHR Reviewed: Yes Patient Identification Confirmation Method: Reports: Verbal Patient Pt an Appropriate Candidate for the Planned Anesthesia: Yes Alternatives and Risks of Anesthesia Discussed w Pt/Guardian: Yes - Procedure Procedure Start Date: 07/06/21 Procedure Start Time: 10:[address]: Reports: Blood Pressure, Heart Rate, SPO2 Functional IV: Yes Safety Measures: Reports: Patient Identified, Procedure Verified, Site Verified, Procedure Time Out Patient Position: Reports: Sitting Prep: Reports: Betadine x3, Sterile Drape Local Anesthetic: Reports: Intradermal Wheal w Lidocaine 1% Regional Placement Level: Reports: L3-4 Needle: Reports: 17 g Touhy Approach: Reports: Paramedian Technique: Reports: MICHELLE Plastic Syringe Parasthesia: Reports: None Fluid Obtained: Reports: None Test Dose Time: 10:06 Test Dose Medication: Reports: Lidocaine 1.5% w Epinephrine 1:200,000 Test Dose Response: Reports: Negative Loading Dose Time: 10:05 Loading Dose Medication: bupivicaine 0.25% 10cc Loading Dose Patient Position: sitting Continuous Infusion Start Time: 10:10 Continuous Infusion Medication: ropivicaine 0.2% Continuous Infusion Rate: 16 Continuous Infusion PCS Bolus Option: 4 Patient Position Post Placement: Reports: Supline/LAZARUS VS and FHR Monitored in Unit Post Placement: Yes Procedure End Date: 07/06/21 Procedure End Time: 11:02
--- NOTE | 2021-07-06 10:23 | PCM.POSTAN ---
POST ANESTHESIA ASSESSMENT - MENTAL STATUS Mental Status: Alert, Oriented - RESPIRATORY Respiratory Status: Respiratory Rate WNL, Airway Patent, O2 Saturation Stable - CARDIOVASCULAR CV Status: Pulse Rate WNL, Blood Pressure Stable - GASTROINTESTINAL GI Status: No Symptoms - POST OP HYDRATION Hydration Status: Adequate & Stable
--- NOTE | 2021-07-06 11:02 | PCM.DEL ---
L & D Note - General Info Date of Service: 07/06/21 Mother's Due Date: 07/13/21 - Delivery Note Labor: Induced by Oxytocin Delivery Outcome: Livebirth Infant Delivery Method: Spontaneous Vaginal Delivery-Single Presentation: Left Occiput Anterior (STEPHANY) Nuchal Cord: None Anesthesia Type: Epidural Amniotic Fluid Description: Clear Laceration: Periurethral Placenta: Intact, Spontaneous Cord: 3 Vessels Estimated Blood Loss: 200 Resuscitation Needed: No [place]: Suctioned, Bulb Syringe Score 1 min: 8 Score 5 min: 9 - General Info Date of Service: 07/06/21 Admission Dx/Problem (Free Text): induction of labor - Patient Data Weight - Most Recent: 100.698 kg Lab Results Last 24 Hours: Laboratory Results - last 24 hr 07/06/21 07/06/21 Range/Units 05:50 05:50 WBC 12.76 H (4.0-11.0) K/uL RBC 3.86 L (4.30-5.90) M/uL Hgb 9.9 L (12.0-16.0) g/dL Hct 30.8 L (36.0-46.0) % MCV 79.8 L (80.0-98.0) fL MCH 25.6 L (27.0-32.0) pg MCHC 32.1 (31.0-37.0) g/dL RDW Std Deviation 42.2 (28.0-62.0) fl RDW Coeff of Rosalva 15 (11.0-15.0) % Plt Count 224 (150-400) K/uL MPV 10.70 (7.40-12.00) fL Nucleated RBC % 0.0 /100WBC Nucleated RBCs # 0 K/uL Blood Type A POSITIVE Antibody Screen NEGATIVE Med Orders - Current: Current Medications Butorphanol Tartrate (Butorphanol 1 Mg/Ml Sdv) 1 mg IVPUSH Q1H PRN PRN Reason: Pain (severe 7-10) Carboprost Tromethamine (Carboprost Tromethamine 250 Mcg/1 Ml Amp) 250 mcg IM ASDIRECTED PRN PRN Reason: Post Hemorrhage Oxytocin/Sodium Chloride (Oxytocin 30 Unit/500 Ml-Ns) 30 unit in 500 mls @ 500 mls/hr IV TITRATE [place] Tranexamic Acid 1,000 mg/ (Sodium Chloride) 110 mls @ 660 mls/hr IV ONETIME PRN PRN Reason: Bleeding Oxytocin/Sodium Chloride (Oxytocin 30 Unit/500 Ml-Ns) 30 unit in 500 mls @ 2 mls/hr IV TITRATE [place]; Protocol Last Admin: 07/06/21 07:47 Dose: 2 munits/min, 2 mls/hr Documented by: Lactated Ringer's (Ringers, Lactated) 1,000 mls @ 150 mls/hr IV ASDIRECTED [place] Lidocaine HCl (Lidocaine 1% 50 Ml Mdv) 50 ml INJECT ONETIME PRN PRN Reason: Laceration repair Methylergonovine Maleate (Methylergonovine 0.2 Mg/1 Ml Amp) 0.2 mg IM ASDIRECTED PRN PRN Reason: Post Hemorrhage Misoprostol (Misoprostol 200 Mcg Tab) 200 mcg PO ONETIME PRN PRN Reason: Post Hemorrhage Nalbuphine HCl (Nalbuphine 10 Mg/1 Ml Vial) 10 mg IVPUSH Q1H PRN PRN Reason: Pain (severe 7-10) Sodium Chloride (Sodium Chloride 0.9% 10 Ml Syringe) 10 ml FLUSH ASDIRECTED PRN PRN Reason: Keep Vein Open Sodium Chloride (Sodium Chloride 0.9% 2.5 Ml Syringe) 2.5 ml FLUSH ASDIRECTED PRN PRN Reason: Keep Vein Open Sodium Chloride (Sodium Chloride 0.9% 10 Ml Sdv) 10 ml IV ASDIRECTED PRN PRN Reason: IV Use Sterile Water (Water For Irrigation,Sterile 1,000 Ml Container) 1,000 ml IRR ASDIRECTED PRN PRN Reason: delivery Terbutaline Sulfate (Terbutaline 1 Mg/Ml Sdv) 0.25 mg SUBCUT ASDIRECTED PRN PRN Reason: Tacysystole Discontinued Medications Ropivacaine (Naropin 0.2%) Confirm Administered Dose 200 mls @ as directed .ROUTE .[facility] ONE Stop: 07/06/21 09:59 - Problem List & Annotations (1) Vaginal delivery SNOMED Code(s): 241600689 Code(s): O80 - ENCOUNTER FOR FULL-TERM UNCOMPLICATED DELIVERY Status: Acute Current Visit: Yes - Problem List Review Problem List Initiated/Reviewed/Updated: Yes - Assessment Assessment:: 36-year-old s/p uncomplicated vaginal delivery induced with pitocin due to labile BP at term. boy. Apgars 8,9. Weight 3830 grams. Blood type o+, rubella immune, GBS negative, COVID negative. Hbg prior to delivery= 9.9
[2021-07-06] MEDS ORDERED: Acetaminophen 500 MG Tab PO PRN ×2 (11:52)
[2021-07-06] MEDS ORDERED: Docusate Sodium 100 MG Cap PO PRN (11:52)
[2021-07-06] MEDS ORDERED: Bisacodyl 10 MG Supp RECTAL PRN (11:52)
[2021-07-06] MEDS ORDERED: Ibuprofen 400 MG Tab PO PRN (11:52)
[2021-07-06] MEDS ORDERED: Benzocaine/Menthol 20%-0.5% Spray 78 GM Cannister TOP PRN (11:52)
[2021-07-06] MEDS ORDERED: Lanolin 100% Cream 7 GM Tube TOP PRN (11:52)
[2021-07-06] MEDS ORDERED: Witch Hazel Medicated Pads 40/Jar TOP PRN (11:52)
--- NOTE | 2021-07-06 13:50 | PCM48HPAN ---
Post Anesthesia Note - EVALUATION WITHIN 48HRS OF ANESTHETIC Vital Signs in Normal Range: Yes Patient Participated in Evaluation: Yes Respiratory Function Stable: Yes Airway Patent: Yes Cardiovascular Function Stable: Yes Hydration Status Stable: Yes Pain Control Satisfactory: Yes Nausea and Vomiting Control Satisfactory: Yes Mental Status Recovered: Yes
--- NOTE | 2021-07-06 13:58 | OR ---
SURGEON: Alma Rosa Rodríguez M.D. DATE OF PROCEDURE: 07/06/2021 PREOPERATIVE DIAGNOSES: 1. A 39-week intrauterine . 2. Labile blood pressures. POSTOPERATIVE DIAGNOSES: 1. A 39-week intrauterine . 2. Labile blood pressures. PROCEDURE PERFORMED: 1. Pitocin induction of labor. 2. Artificial rupture of membranes. 3. Term spontaneous vaginal delivery. PRIMARY SURGEON: Alma Rosa Rodríguez M.D. OPERATIONS FORESTER: MAGO Florian. ANESTHESIA: Epidural. ESTIMATED BLOOD LOSS: 200 mL. FINDINGS: Liveborn male with scores of 8 and 9, weighing 3830 g. Placenta spontaneous, Schultze intact with 3 vessels. Perineum intact. There was a small laceration just above the urethra that was repaired. COMPLICATIONS: None known. DISPOSITION: Mother and baby in LDR in good condition. BRIEF HISTORY: This is a 36-year-old female. She is G4, P3. She presents at 39 weeks gestation for induction of labor with advanced dilatation of 4 cm, 90%, -1 station, and labile blood pressure with reading of 130/80 in the clinic. No proteinuria and negative preeclamptic symptoms. She is known to be group B strep negative. She received Pitocin in her IV. On examination, she was 5 cm, 80%. Artificial rupture of membranes was performed. Clear fluid was noted. She received an epidural for pain control. Shortly thereafter, she was complete. DESCRIPTION OF PROCEDURE: With the patient in dorsal lithotomy position, under adequate epidural analgesia, the perineum was prepped and cleaned and draped for a vaginal delivery. The patient pushed over 3 contractions to a 5+ station at which time the head was delivered spontaneously and atraumatically over the perineum with support. Annabella maneuver and suprapubic pressure were performed due to slight turtling of the head. However, the anterior shoulder was delivered without any difficulty with subsequent delivery of the 's body. The infant was bulb suctioned by nose and mouth and handed to the mother in the presence of nurse attending delivery. The infant was a liveborn male, scores of 8 and 9, weighing 3830 g. After 1-1/2 minutes, the cord was doubly clamped and cut. Cord blood was collected for cord ABGs as well as routine cord blood sampling. Pitocin was initiated after delivery of the infant to assist with delivery of the placenta, which was delivered spontaneously, Schultze intact with 3 vessels. Upon inspection of pelvis and perineum, there was a small laceration above the urethra, which was repaired using a [id number] suture of 4-0 chromic gut. There were no other vaginal sidewall, cervical, rectal, or perineal lacerations. EBL was less than 300 mL. There were no known complications. Mother and baby are in LDR in good condition. DEION / HINA /[id number]
[2021-07-06] MEDS: Ibuprofen 800 MG Tab PO PRN ×2 (13:59→20:32)
--- NOTE | 2021-07-07 07:29 | PCM.PNPP ---
<Angela Rojas - Last Filed: 07/07/21 07:29> - General Info Date of Service: 07/07/21 Admission Dx/Problem (Free Text): induction of labor Subjective Update: Pain controlled overnight. Having more vaginal bleeding than with previous pregnancies, changed pad "more than a few times yesterday". No pain with urination. Ambulating well and tolerating food. Denies dizziness, lightheadedness, or SOB. Wondering if she can start taking propanolol more for migraines. Functional Status: Reports: Pain Controlled, Tolerating Diet, Ambulating, Urinating - Review of Systems General: Reports: No Symptoms HEENT: Reports: No Symptoms Pulmonary: Reports: No Symptoms Cardiovascular: Reports: No Symptoms Gastrointestinal: Reports: No Symptoms Genitourinary: Reports: No Symptoms Musculoskeletal: Reports: No Symptoms Skin: Reports: No Symptoms Neurological: Reports: No Symptoms Psychiatric: Reports: No Symptoms - General Info Date of Service: 07/07/21 - Patient Data Vital Signs - Most Recent: Last Vital Signs Temp 36.6 C 07/06/21 20:00 Pulse 86 07/06/21 20:00 Resp 16 07/06/21 20:00 BP 130/77 07/06/21 20:00 Pulse Ox 100 07/06/21 20:00 Weight - Most Recent: 100.698 kg Lab Results - Last 24 Hours: Laboratory Results - last 24 hr 07/06/21 07/06/21 07/07/21 Range/Units 05:50 10:32 05:00 Hgb 8.9 L (12.0-16.0) g/dL Hct 28.0 L (36.0-46.0) % Cord ABG pH 7.286 (7.18-7.38) Cord ABG Base Excess -6 (-10--2) Cord VBG pH 7.368 (7.25-7.45) Cord VBG Base Excess -5 (-10--2) Blood Type A POSITIVE Antibody Screen NEGATIVE Med Orders - Current: Current Medications Acetaminophen (Acetaminophen 500 Mg Tab) 500 mg PO Q4H PRN PRN Reason: Pain (mild 1-3) Acetaminophen (Acetaminophen 500 Mg Tab) 1,000 mg PO Q4H PRN PRN Reason: Pain (mild 1-3) Last Admin: 07/06/21 16:59 Dose: 1,000 mg Documented by: Benzocaine/Menthol (Benzocaine/Menthol 20%-0.5% [place] 78 Gm Cannister) 78 gm TOP ASDIRECTED PRN PRN Reason: Perineal Comfort Measure Last Admin: 07/06/21 12:45 Dose: 1 container Documented by: Bisacodyl (Bisacodyl 10 Mg Supp) 10 mg RECTAL ONETIME PRN PRN Reason: Constipation Docusate Sodium (Docusate Sodium 100 Mg Cap) 100 mg PO Q12H PRN PRN Reason: Constipation Emollient Ointment (Lanolin 100% Cream 7 Gm Tube) 0 gm TOP ASDIRECTED PRN PRN Reason: Sore Nipples Tranexamic Acid 1,000 mg/ (Sodium Chloride) 110 mls @ 660 mls/hr IV ONETIME PRN PRN Reason: Bleeding Ibuprofen (Ibuprofen 400 Mg Tab) 400 mg PO Q4H PRN PRN Reason: Pain (mild 1-3) Ibuprofen (Ibuprofen 800 Mg Tab) 800 mg PO Q6H PRN PRN Reason: Pain (mild 1-3) Last Admin: 07/06/21 20:32 Dose: 800 mg Documented by: Methylergonovine Maleate (Methylergonovine 0.2 Mg/1 Ml Amp) 0.2 mg IM ONETIME PRN PRN Reason: Excessive Vaginal Bleeding Witch Mony (Witch Mony Medicated Pads 40/Jar) 1 pad TOP ASDIRECTED PRN PRN Reason: comfort care Last Admin: 07/06/21 12:45 Dose: 1 pack Documented by: Discontinued Medications Butorphanol Tartrate (Butorphanol 1 Mg/Ml Sdv) 1 mg IVPUSH Q1H PRN PRN Reason: Pain (severe 7-10) Carboprost Tromethamine (Carboprost Tromethamine 250 Mcg/1 Ml Amp) 250 mcg IM ASDIRECTED PRN PRN Reason: Post Hemorrhage Oxytocin/Sodium Chloride (Oxytocin 30 Unit/500 Ml-Ns) 30 unit in 500 mls @ 500 mls/hr IV TITRATE [place] Tranexamic Acid 1,000 mg/ (Sodium Chloride) 110 mls @ 660 mls/hr IV ONETIME PRN PRN Reason: Bleeding Oxytocin/Sodium Chloride (Oxytocin 30 Unit/500 Ml-Ns) 30 unit in 500 mls @ 2 mls/hr IV TITRATE [place]; Protocol Last Titration: 07/06/21 12:35 Dose: 999 munits/min, 999 mls/hr Documented by: Lactated Ringer's (Ringers, Lactated) 1,000 mls @ 150 mls/hr IV ASDIRECTED [place] Last Admin: 07/06/21 10:00 Dose: 999 mls/hr Documented by: Ropivacaine (Naropin 0.2%) Confirm Administered Dose 200 mls @ as directed .ROUTE .K-MED ONE Stop: 07/06/21 09:59 Lidocaine HCl (Lidocaine 1% 50 Ml Mdv) 50 ml INJECT ONETIME PRN PRN Reason: Laceration repair Methylergonovine Maleate (Methylergonovine 0.2 Mg/1 Ml Amp) 0.2 mg IM ASDIRECTED PRN PRN Reason: Post Hemorrhage Misoprostol (Misoprostol 200 Mcg Tab) 200 mcg PO ONETIME PRN PRN Reason: Post Hemorrhage Nalbuphine HCl (Nalbuphine 10 Mg/1 Ml Vial) 10 mg IVPUSH Q1H PRN PRN Reason: Pain (severe 7-10) Sodium Chloride (Sodium Chloride 0.9% 10 Ml Syringe) 10 ml FLUSH ASDIRECTED PRN PRN Reason: Keep Vein Open Sodium Chloride (Sodium Chloride 0.9% 2.5 Ml Syringe) 2.5 ml FLUSH ASDIRECTED PRN PRN Reason: Keep Vein Open Sodium Chloride (Sodium Chloride 0.9% 10 Ml Sdv) 10 ml IV ASDIRECTED PRN PRN Reason: IV Use Sterile Water (Water For Irrigation,Sterile 1,000 Ml Container) 1,000 ml IRR ASDIRECTED PRN PRN Reason: delivery Terbutaline Sulfate (Terbutaline 1 Mg/Ml Sdv) 0.25 mg SUBCUT ASDIRECTED PRN PRN Reason: Tacysystole - Interaction Disposition, : to Nursery Support Person: - Recovery Exam Fundal Tone: Firm Fundal Placement: Midline Other Perinuem Description: small periurethral laceration Episiotomy/Laceration: Approximated Bladder Status: Nonpalpable, Voiding Urinary Elimination: Voided - Exam General: Alert, Oriented Neck: Supple Lungs: Clear to Auscultation, Normal Respiratory Effort Cardiovascular: Regular Rate, Regular Rhythm GI/Abdominal Exam: Normal Bowel Sounds, Soft, Non-Tender, No Distention Extremities: Normal Inspection, Normal Range of Motion, Non-Tender, No Pedal Edema, Normal Capillary Refill Skin: Warm, Dry, Intact Wound/Incisions: Healing Well Neurological: No New Focal Deficit Psy/Mental Status: Alert, Normal Affect, Normal Mood - Problem List & Annotations (1) Vaginal delivery SNOMED Code(s): 743557181 Code(s): O80 - ENCOUNTER FOR FULL-TERM UNCOMPLICATED DELIVERY Status: Acute Current Visit: Yes - Problem List Review Problem List Initiated/Reviewed/Updated: Yes - Assessment Assessment:: 36-year-old s/p uncomplicated vaginal delivery induced with pitocin due to labile BP at term. boy. Apgars 8,9. Weight 3830 grams. Blood type o+, rubella immune, GBS negative, COVID negative. Hbg today 8.9, down from 9.9 yesterday. No symptoms. - Plan Plan:: - Continue to monitor for bleeding - Encourage ambulation - - Can likely discharge today pending screening - Consider iron intake at discharge due to low hgb - Dr. Rodríguez will offer propanolol recommendations <Alma Rosa Rodríguez - Last Filed: 07/07/21 07:50> - Patient Data Vital Signs - Most Recent: Last Vital Signs Temp 36.6 C 07/06/21 20:00 Pulse 86 07/06/21 20:00 Resp 16 07/06/21 20:00 BP 130/77 07/06/21 20:00 Pulse Ox 100 07/06/21 20:00 Lab Results - Last 24 Hours: Laboratory Results - last 24 hr 07/06/21 07/06/21 07/07/21 Range/Units 05:50 10:32 05:00 Hgb 8.9 L (12.0-16.0) g/dL Hct 28.0 L (36.0-46.0) % Cord ABG pH 7.286 (7.18-7.38) Cord ABG Base Excess -6 (-10--2) Cord VBG pH 7.368 (7.25-7.45) Cord VBG Base Excess -5 (-10--2) Blood Type A POSITIVE Antibody Screen NEGATIVE Med Orders - Current: Current Medications Acetaminophen (Acetaminophen 500 Mg Tab) 500 mg PO Q4H PRN PRN Reason: Pain (mild 1-3) Acetaminophen (Acetaminophen 500 Mg Tab) 1,000 mg PO Q4H PRN PRN Reason: Pain (mild 1-3) Last Admin: 07/06/21 16:59 Dose: 1,000 mg Documented by: Benzocaine/Menthol (Benzocaine/Menthol 20%-0.5% [place] 78 Gm Cannister) 78 gm TOP ASDIRECTED PRN PRN Reason: Perineal Comfort Measure Last Admin: 07/06/21 12:45 Dose: 1 container Documented by: Bisacodyl (Bisacodyl 10 Mg Supp) 10 mg RECTAL ONETIME PRN PRN Reason: Constipation Docusate Sodium (Docusate Sodium 100 Mg Cap) 100 mg PO Q12H PRN PRN Reason: Constipation Emollient Ointment (Lanolin 100% Cream 7 Gm Tube) 0 gm TOP ASDIRECTED PRN PRN Reason: Sore Nipples Tranexamic Acid 1,000 mg/ (Sodium Chloride) 110 mls @ 660 mls/hr IV ONETIME PRN PRN Reason: Bleeding Ibuprofen (Ibuprofen 400 Mg Tab) 400 mg PO Q4H PRN PRN Reason: Pain (mild 1-3) Ibuprofen (Ibuprofen 800 Mg Tab) 800 mg PO Q6H PRN PRN Reason: Pain (mild 1-3) Last Admin: 07/06/21 20:32 Dose: 800 mg Documented by: Methylergonovine Maleate (Methylergonovine 0.2 Mg/1 Ml Amp) 0.2 mg IM ONETIME PRN PRN Reason: Excessive Vaginal Bleeding Witch Mony (Witch Mony Medicated Pads 40/Jar) 1 pad TOP ASDIRECTED PRN PRN Reason: comfort care Last Admin: 07/06/21 12:45 Dose: 1 pack Documented by: Discontinued Medications Butorphanol Tartrate (Butorphanol 1 Mg/Ml Sdv) 1 mg IVPUSH Q1H PRN PRN Reason: Pain (severe 7-10) Carboprost Tromethamine (Carboprost Tromethamine 250 Mcg/1 Ml Amp) 250 mcg IM ASDIRECTED PRN PRN Reason: Post Hemorrhage Oxytocin/Sodium Chloride (Oxytocin 30 Unit/500 Ml-Ns) 30 unit in 500 mls @ 500 mls/hr IV TITRATE [place] Tranexamic Acid 1,000 mg/ (Sodium Chloride) 110 mls @ 660 mls/hr IV ONETIME PRN PRN Reason: Bleeding Oxytocin/Sodium Chloride (Oxytocin 30 Unit/500 Ml-Ns) 30 unit in 500 mls @ 2 mls/hr IV TITRATE [place]; Protocol Last Titration: 07/06/21 12:35 Dose: 999 munits/min, 999 mls/hr Documented by: Lactated Ringer's (Ringers, Lactated) 1,000 mls @ 150 mls/hr IV ASDIRECTED [place] Last Admin: 07/06/21 10:00 Dose: 999 mls/hr Documented by: Ropivacaine (Naropin 0.2%) Confirm Administered Dose 200 mls @ as directed .ROUTE .[facility]-MED ONE Stop: 07/06/21 09:59 Lidocaine HCl (Lidocaine 1% 50 Ml Mdv) 50 ml INJECT ONETIME PRN PRN Reason: Laceration repair Methylergonovine Maleate (Methylergonovine 0.2 Mg/1 Ml Amp) 0.2 mg IM ASDIRECTED PRN PRN Reason: Post Hemorrhage Misoprostol (Misoprostol 200 Mcg Tab) 200 mcg PO ONETIME PRN PRN Reason: Post Hemorrhage Nalbuphine HCl (Nalbuphine 10 Mg/1 Ml Vial) 10 mg IVPUSH Q1H PRN PRN Reason: Pain (severe 7-10) Sodium Chloride (Sodium Chloride 0.9% 10 Ml Syringe) 10 ml FLUSH ASDIRECTED PRN PRN Reason: Keep Vein Open Sodium Chloride (Sodium Chloride 0.9% 2.5 Ml Syringe) 2.5 ml FLUSH ASDIRECTED PRN PRN Reason: Keep Vein Open Sodium Chloride (Sodium Chloride 0.9% 10 Ml Sdv) 10 ml IV ASDIRECTED PRN PRN Reason: IV Use Sterile Water (Water For Irrigation,Sterile 1,000 Ml Container) 1,000 ml IRR ASDIRECTED PRN PRN Reason: delivery Terbutaline Sulfate (Terbutaline 1 Mg/Ml Sdv) 0.25 mg SUBCUT ASDIRECTED PRN PRN Reason: Tacysystole - Problem List Review Problem List Initiated/Reviewed/Updated: Yes - My Orders Last 24 Hours: My Active Orders 07/06/21 Lunch Regular Diet [DIET] 07/06/21 11:52 Patient Status [ADT] Routine May Shower [RC] ASDIRECTED Up ad Belle [RC] ASDIRECTED Vital Signs [RC] PER UNIT ROUTINE Acetaminophen [Tylenol Extra Strength] 1,000 mg PO Q4H PRN Acetaminophen [Tylenol Extra Strength] 500 mg PO Q4H PRN Benzocaine/Menthol [Dermoplast Pain Relief 20%-0.5% [place]] 78 gm TOP ASDIRECTED PRN Docusate Sodium [Colace] 100 mg PO Q12H PRN Ibuprofen [Motrin] 400 mg PO Q4H PRN Ibuprofen [Motrin] 800 mg PO Q6H PRN Lanolin [Lansinoh HPA] See Dose Instructions TOP ASDIRECTED PRN Methylergonovine [Methergine] 0.2 mg IM ONETIME PRN Tranexamic Acid [Cyklokapron] 1,000 mg Sodium Chloride 0.9% [Normal Saline] 100 ml IV ONETIME bisacodyL [Dulcolax] 10 mg RECTAL ONETIME PRN witch Mony [Tucks] 1 pad TOP ASDIRECTED PRN Assess Lochia [WOMSER] Per Unit Routine Assess Uterine Involution [WOMSER] Per Unit Routine Perineal Care [OM.PC] Per Unit Routine Peripheral IV Discontinue [OM.PC] Routine Resuscitation Status Routine - Plan Plan:: Bleeding is minimal this am. Patient would like to be discharged. Discharge instructions reviewed. Continue iron due to anemia, may resume propranolol.
[2021-07-07] MEDS: Ibuprofen 800 MG Tab PO PRN (07:56)
[2021-07-07 08:06] VITALS: BP 119/78; PULSE 75
== END 2021-07-07 13:30 | disposition home or self-care (01) ==
LOC: MW.OBCHECK 05:15 → MW.OB 05:15 → MW.OBCHECK 06:23 → MW.OB 14:32
PROVIDERS: ADMIT Obstetrics & Gynecology; ATTEND Obstetrics & Gynecology
DX: O80 Encounter for full-term uncomplicated delivery (principal); Z37.0 Single live birth
CPT/HCPCS: 36415; 59025; 59409; 82803; 85014; 85018; 85027; 86592; 86850; 86900; 86901; A9270; J2590; J2795; J7120